=== PATIENT | female | born 1945 | race Caucasian/White ===

== ENCOUNTER 2020-05-01 19:49 | Inpatient (IN) ==
[2020-05-02] MEDS ORDERED: Naloxone 0.4 MG/ML INJ IVP PRN (00:17)
[2020-05-02] MEDS ORDERED: Ondansetron 4 MG/2 ML VIAL IVP PRN (00:17)
[2020-05-02] MEDS ORDERED: Acetaminophen 325 MG TABLET PO PRN (00:17)
[2020-05-02] MEDS ORDERED: Perflutren Lipid Microsphere 1.3 ML in 0.9 % Sodium Chloride 8.7 ML IVP PRN (00:23)
[2020-05-02] MEDS ORDERED: Potassium Chloride Elixir 20 MEQ/15 ML UDC PO ONE (00:46)
[2020-05-02] MEDS: Ringers Solution, Lactated 1,000 ML IVC SCH ×2 (02:12→18:14)
[2020-05-02 04:13] LABS: Basophils # 0.1 K/mcL (0.0-0.2); Basophils % 0.9 %; Eosinophils # 0.5 K/mcL (0.0-0.6); Eosinophils % 6.3 %; Hematocrit 34.3 % (35.3-44.9); Hemoglobin 11.2 g/dL (11.5-15.4); Immature Granulocytes % 0.5 % (0-4); Lymphocytes # 1.6 K/mcL (0.6-4.6); Lymphocytes % 19.3 %; Mean Corpuscular HGB Conc 32.7 g/dL (31.6-35.5); Mean Corpuscular Hemoglobin 31.8 pg (28.0-33.3); Mean Corpuscular Volume 97.4 fL (83.0-100.0); Mean Platelet Volume 10.7 fL (9.4-12.4); Monocytes # 0.8 K/mcL (0.0-1.3); Monocytes % 10.1 %; Neutrophils # 5.1 K/mcL (1.6-8.9); Platelet Count 214 K/mcL (140-400); Red Blood Count 3.52 M/mcL (3.82-4.97); Segmented Neutrophils % 62.9 %
[2020-05-02 04:14] LABS: Prothrombin Time 11.3 Seconds (9.4-12.1)
[2020-05-02 04:19] LABS: % Iron Saturation 11 % (15-50); Alanine Aminotransferase 21 Units/L (7-52); Albumin 3.8 g/dL (3.5-5.7); Albumin/Globulin Ratio 1.5 (1.1-2.2); Alkaline Phosphatase 63 Units/L (34-104); Aspartate Amino Transferase 18 Units/L (13-39); BUN/Creatinine Ratio 20 (6-26); Bilirubin,Total 0.6 mg/dL (0.3-1.0); Blood Urea Nitrogen 20 mg/dL (8-23); Calcium 9.3 mg/dL (8.6-10.3); Carbon Dioxide 30 mEq/L (23-29); Chloride 106 mEq/L (98-107); Chol/HDL Ratio 4.2 (0-4.9); Cholesterol 171 mg/dL (< 200); Globulin 2.6 g/dL (2.4-3.5); Glucose 115 mg/dL (70-105); HDL Cholesterol 41 mg/dL (40-59); Iron 41 mcg/dL (50-170); LDL Cholesterol,Calculated 102 mg/dL (< 100); Magnesium 1.9 mg/dL (1.6-2.6); Osmolality,Calculated 298 (280-300); Phosphorous 3.8 mg/dL (2.7-4.5); Potassium 3.8 mEq/L (3.5-5.1); Sodium 142 mEq/L (136-145); Total Protein 6.4 g/dL (6.4-8.9); Transferrin 255 mg/dL (203-362); Triglycerides 142 mg/dL (< 150); eGFR For African Americans > 60 (> 60); eGFR For Non-African Americans 55 (> 60)
[2020-05-02 04:31] LABS: Thyroid Stimulating Hormone 4.661 mcIU/mL (0.340-5.600)
[2020-05-02 04:36] LABS: Ferritin 90 ng/mL (10-120)
[2020-05-02 04:42] LABS: Folate > 22.3 ng/mL (3.0-16.0); Vitamin B12 174 pg/mL (250-1100)
[2020-05-02] MEDS: *HR* Heparin 5,000 UNIT/ML VIAL SQ SCH ×3 (05:48→22:51)
[2020-05-02] MEDS ORDERED: amLODIPine 5 MG TABLET PO SCH (09:00)
[2020-05-02] MEDS ORDERED: hydroCHLOROthiazide 25 MG TABLET PO SCH (09:00)
[2020-05-02] MEDS: Folic Acid 1 MG TABLET PO SCH (09:17)
[2020-05-02] MEDS: Aspirin Enteric Coated 81 MG Tablet PO SCH (09:17)
[2020-05-02] MEDS ORDERED: *HR* HYDROcodone/Acet 5/325 mg TABLET PO PRN (10:28)
[2020-05-02] MEDS ORDERED: Cyanocobalamin (B-12) 1,000 MCG/ML VIAL IM ONE (11:35)
[2020-05-02] MEDS ORDERED: Isovue-370 500 ML BOTTLE IVP ONE (11:37)
[2020-05-02] MEDS: *HR* OxyCODONE Immed Rel 5 MG TABLET PO PRN ×2 (12:11→18:13)
[2020-05-02] MEDS: atenoloL 50 MG TABLET PO SCH (14:30)
[2020-05-02] MEDS: Iron Polysaccharide Complex 150 MG CAPSULE PO SCH (14:30)
[2020-05-03] MEDS: *HR* OxyCODONE Immed Rel 5 MG TABLET PO PRN ×2 (00:08→06:30)
[2020-05-03] MEDS: Ringers Solution, Lactated 1,000 ML IVC SCH (06:31)
[2020-05-03] MEDS: *HR* Heparin 5,000 UNIT/ML VIAL SQ SCH (06:31)
[2020-05-03 07:42] LABS: Basophils # 0.1 K/mcL (0.0-0.2); Basophils % 0.7 %; Eosinophils # 0.5 K/mcL (0.0-0.6); Eosinophils % 6.9 %; Hematocrit 33.5 % (35.3-44.9); Hemoglobin 10.4 g/dL (11.5-15.4); Immature Granulocytes % 0.7 % (0-4); Lymphocytes # 1.5 K/mcL (0.6-4.6); Lymphocytes % 21.8 %; Mean Corpuscular Hemoglobin 30.1 pg (28.0-33.3); Mean Corpuscular Volume 97.1 fL (83.0-100.0); Mean Platelet Volume 11.3 fL (9.4-12.4); Monocytes % 14.1 %; Neutrophils # 3.9 K/mcL (1.6-8.9); Nucleated Red Blood Cells 0.3 /100 WBC (0); Platelet Count 216 K/mcL (140-400); Red Blood Count 3.45 M/mcL (3.82-4.97); Red Cell Distribution Width 17.3 % (11.5-14.5); Segmented Neutrophils % 55.8 %; White Blood Count 6.9 K/mcL (4.3-11.1)
[2020-05-03 07:49] LABS: BUN/Creatinine Ratio 18 (6-26); Blood Urea Nitrogen 15 mg/dL (8-23); Calcium 9.1 mg/dL (8.6-10.3); Carbon Dioxide 27 mEq/L (23-29); Chloride 105 mEq/L (98-107); Glucose 105 mg/dL (70-105); Osmolality,Calculated 291 (280-300); Potassium 3.3 mEq/L (3.5-5.1); Sodium 140 mEq/L (136-145); eGFR For African Americans > 60 (> 60); eGFR For Non-African Americans > 60 (> 60)
[2020-05-03] MEDS ORDERED: Cyanocobalamin (B-12) 1,000 MCG/ML VIAL IM ONE (09:31)
[2020-05-03] MEDS: Aspirin Enteric Coated 81 MG Tablet PO SCH (09:45)
[2020-05-03] MEDS: atenoloL 50 MG TABLET PO SCH (09:45)
[2020-05-03] MEDS: Folic Acid 1 MG TABLET PO SCH (09:45)
[2020-05-03 11:26] VITALS: BP 147/73
[2020-05-03] MEDS: Iron Polysaccharide Complex 150 MG CAPSULE PO SCH (11:32)
[2020-05-07] MEDS ORDERED: *HR* Methotrexate 2.5 MG TABLET PO SCH (09:00)
== END 2020-05-03 12:51 | disposition home or self-care (01) | DRG 65 ==
LOC: 3BNU
PROVIDERS: ADMIT Internal Medicine; ATTEND Internal Medicine